=== PATIENT | male | born 1975 | race Caucasian/White ===

== ENCOUNTER 2021-10-03 10:57 | Emergency (ER) | payer OTHER, SELFPAY ==
[2021-10-03 10:58] VITALS: BP 144/99; PULSE 106; RESP 16; TEMP 36.7; O2SAT 100; BMI 23.2
--- NOTE | 2021-10-03 11:33 | RAD_ITS ---
STUDY: X-RAY - LEFT HAND REASON FOR EXAM: Pain, limited range of motion and swelling of left index finger since last , no specific injury. TECHNIQUE: 3 view(s) of the hand. COMPARISON: None. FINDINGS: Normal radiocarpal articulation. Normal distal radioulnar joint. Normal visualized carpal bones. Normal carpal articulations Normal carpometacarpal articulation of the thumb. Normal second through fifth carpometacarpal joints. Normal metacarpi. Normal metacarpophalangeal joint of the thumb. Normal interphalangeal joint of the thumb. Normal proximal and distal phalanges of the thumb. Normal metacarpophalangeal joints of the second through fifth fingers. Normal proximal and distal interphalangeal joints of the second through fifth fingers. Normal phalanges of the second through fifth fingers. There is soft tissue swelling of the index finger. RAD/Hand Min 3 Views IMPRESSION: Soft tissue swelling of the left index finger without demonstrated underlying osseous abnormality. Electronically Signed: Krystian Glaser MD at 12:27 EDT Tel , Service support ,
--- NOTE | 2021-10-03 11:58 | CM.ED ---
SW Note Referral Source: Case Find Referral Reason: No Primary Care Physician (PCP) SW reviewed chart and noted that patient has no PCP. SW provided patient with list of [facility] and [facility] Physician List for reference. No other issues or concerns voiced at this time. SW remains available for any additional needs. Plan: Provided patient with PCP information Nori MORALES
--- NOTE | 2021-10-03 12:06 | CM.ED ---
SW Note Referral Source: Case Find Referral Reason: No Primary Care Physician (PCP) SW reviewed chart and noted that patient has no PCP. SW provided patient with list of [facility] and [facility] Physician List for reference. No other issues or concerns voiced at this time. SW remains available for any additional needs. Plan: Provided patient with PCP information Nori MORALES
--- NOTE | 2021-10-03 12:12 | EDS_ITS ---
HPI History of Present Illness Chief Complaint: Upper Extremity Injury Informant: patient Onset/Context/Timing Onset: Days Context: Gradual Onset Timing: Continuous Current Severity: Mild Maximum Severity: Mild Associated Symptoms Associated Symptoms: Negative for Parasthesia, Weakness and Loss of Funtion Narrative Narrative: 46-year-old male on no significant past medical history. He is right-hand dominant. States he has had swelling of left index finger since last . There is mild discomfort. No fall injury or trauma. No history of gout. He was seen in urgent care they told it was fine and he wanted to start taking Motrin. He denies any fever chills or red streaks. He has never had any history of any like this before. Prior similar symptoms: No Recent Illness/Hospitalization: No PFSH PFSH Medical History no medical history Home Medications cephalexin 500 mg PO Q6H 7 Days #28 cap 10/03/21 [Rx Last Taken Unknown] Allergy/AdvReac Type Severity Reaction Status Date / Time No Known Allergies Allergy Verified 10/03/21 11:00 Social History Smoking Status: Current every day smoker tobacco type: cigarettes ROS ROS ED ROS Narrative Denies recent illness. Review of Systems ROS Unobtainable: Denies due to encephalopathy Constitutional Constitutional ED: Denies chills or fever(s) Eyes Eyes: Denies change in vision ENT ENT ED: Denies ear pain Cardiovascular Cardiovascular: Denies chest pain Respiratory/Chest Respiratory/Chest: Denies dyspnea Gastrointestinal Gastrointestinal: Denies abdominal pain Genitourinary Genitourinary ED: Denies dysuria Musculoskeletal Musculoskeletal: Denies myalgias Integumentary Denies rash Neurologic Neurologic: Denies headache(s) Psychiatric Psychiatric: Denies depression Endocrine Endocrinology: Denies polyuria Hematologic/Lymphatic Hematologic/Lymphatic: Denies easy bruising Allergic/Immunologic Allergic/Immunologic ED: Denies urticaria EXAM Physical Exam Narrative Exam Narrative: Right male no acute distress vital signs stable afebrile. HEENT, neck, heart, lung and abdominal exams are unremarkable. Left hand left index finger swollen. Has full extension is able to flex. There is no flexor tenosynovitis or extensor tenosynovitis. There is no red streaks. It is mildly tender. No deformity. Neurovascularly intact. There is no signs of any trauma. There is no forearm tenderness or axillary lymphadenopathy. Const Vital Signs: 10/03/21 10:58 Temperature 98.1 F Temperature Source Temporal Pulse Rate 106 H Respiratory Rate 16 Blood Pressure 144/99 H Blood Pressure Mean 114 Pulse Ox 100 Oxygen Delivery Method Room Air Positive well nourished and well developed; Negative for obese, cachectic, contractures or unkempt General Appearance ED: well developed and NAD; Negative for unkempt, cachectic or contractures Nutritional Appearance: Negative for cachectic or obese HEENT Reports moist mucous membranes normocephalic and atraumatic Eyes PERRL and EOMs intact bilaterally Neck full ROM and supple General: Negative for tenderness Chest Wall inspection of chest normal and palpation of chest normal Resp normal respiratory effort and clear to auscultation bilaterally Effort and Inspection: Negative for pain with movement Auscultation: Negative for rales, rhonchi or wheezes Cardio regular rate, regular rhythm, S1 normal heart sound, S2 normal heart sound and no murmurs GI non-tender, non-distended and no masses Auscultation: normoactive bowel sounds Palpation: soft; Negative for tender or guarding Back/Spine no CVA tenderness Extremity Extremity Narrative: Left index finger swollen. Mildly tender. Not hot. Not cellulitic does not appear to be infected. He can do full extension he can do flexion. There is no bony deformity. Distally the finger is normal cap refill tight sensation. The rest of the hand is unremarkable. General Extremety ED: Yes edema General Extremity: edema Neuro oriented x3 and moves all extremities Sensorium / Orientation: alert, oriented to person, oriented to place and asher ented to time; Negative for orientation impaired, lethargic or stuporous Motor Exam: strength 5/5 throughout Psych mental status grossly normal Appearance: Negative for unkempt Skin General Skin Exam: Negative for petechiae Lesions: no lesions and No lesion noted Rashes: no rashes Trauma: no lacerations or abrasions; Negative for abrasion, laceration or puncture MDM MDM MDM Narrative Medical decision making narrative: 46-year-old male with atraumatic swelling of his left index finger. No history of gout. X-ray obtained shows soft tissue swelling otherwise the bone was normal interpreted by myself. He will be placed on ice and anti-inflammatories I will place him on Keflex in case there is underlying infection which I think is less likely. He knows return if worse or if he develops other joint swelling. Radiography Diagnostic Testing: Left hand x-ray shows soft tissue swelling of the left index finger otherwise unremarkable normal bones. Interpreted by myself. 3 views. Discharge Plan Triage Chief Complaint: Upper Extremity Injury ED Provider: Calrton Brandt Dx/Rx/DC Orders Clinical Impression: Inflammation Prescriptions: New cephalexin 500 mg capsule 500 mg PO Q6H 7 Days Qty: 28 RF: 0 Primary Care Provider: Care Physician,No Primary Referrals: Care Physician,No Primary [Primary Care Provider] - Ta Finnegan [employer], [employer] [NON-STAFF] - 1 Week if not improving Activity Restrictions/Additional Instructions: This appears just to be from inflammation or swelling of the finger. Ice and elevate. Motrin for pain and swelling 600 mg 3 times a day. I will start you on an antibiotic in case there is underlying infection which I do not think there is. Keflex 4 times a day till gone. Follow-up with your doctor if not improving or return if worse. If it gets worse with ice then this may be gout. Disposition Disposition: Home, Self Care
== END 2021-10-03 12:31 | disposition home or self-care (01) ==
PROVIDERS: Emergency Provider Emergency Medicine
DX: M79.642 Pain in left hand (principal); M79.89 Other specified soft tissue disorders; F17.210 Nicotine dependence, cigarettes, uncomplicated
CPT/HCPCS: 73130; 99282